=== PATIENT | female | born 2000 | race African-American/Black ===

== ENCOUNTER 2024-07-04 07:33 | Emergency (ER) | payer BC, MEDICAID, SELFPAY ==
[2024-07-04 08:07] LABS: Hematocrit 34.6 % (36.0-47.0); Hemoglobin 10.2 g/dL (12.0-16.0); Mean Corpuscular HGB CONC 29.6 g/dL (32.0-36.0); Mean Corpuscular Hemoglobin 24.2 pg (27.0-31.0); Mean Corpuscular Volume 81.9 fl (78.0-98.0); Mean Platelet Volume 6.4 fL (7.4-10.4); Platelet Count 269 10x3/uL (130-400); RBC Distribution Width 13.2 % (11.5-14.5); Red Blood Cell (RBC) Count 4.22 mill/uL (4.20-5.40); White Blood Cell (WBC) Count 3.7 10x3/uL (4.8-10.8)
[2024-07-04 08:21] LABS: Band 5 % (5-11); Lymphocytes 47 % (21-51); MDiff Complete? YES; Monocytes 2 % (0-10); Neutrophil 45 % (42-75); Platelet Adequacy Comment Appears Adequate
[2024-07-04 08:22] LABS: Anion Gap 12 mmol/L (10-20); BHCG - Serum Negative (NEGATIVE); BUN (Urea Nitrogen) 6 mg/dL (7.0-18.7); Calc. Creatinine Clearance 0 mL/min (70-130); Calcium 8.8 mg/dL (7.8-10.44); Carbon Dioxide 24 mmol/L (22-29); Chloride 109 mmol/L (98-107); Estimated GFR 98; Glucose 87 mg/dL (70-105); Potassium 3.6 mmol/L (3.5-5.1); Pregs Control Background? CLEAR/WHITE (CLR/WHITE); Pregs Control Bar Appear? YES (CONTROL BAR); Sodium 141 mmol/L (136-145)
== END 2024-07-04 08:43 | disposition home or self-care (01) ==
LOC: BURERS 07:33
DX: N93.9 Abnormal uterine and vaginal bleeding, unspecified (principal)
CPT/HCPCS: 80048; 84703; 85025; 99284